=== PATIENT | female | born 1960 | race Caucasian/White ===

== ENCOUNTER 2016-07-09 18:59 | Emergency (ER) | payer OTHER ==
[~2016-07-09] VITALS: Ht 162.6 cm; Wt 104.0 kg
[~2016-07-09 18:59] MED LIST: BENTYL10 MG PO; CLONAZEPAM1 MG PO; DILAUDID2 MG PO; DILAUDID4 MG PO; GABAPENTIN100 MG PO; HUMALOG100 UNIT/1 SC; LEVOXYL150 MCG PO; METFORMIN HCL500 MG PO; PERCOCET 10/1 TABLET PO; PERCOCET 5/31 TABLET PO; PRILOSEC40 MG PO; SUCRALFATE1 GM PO; TOUJEO SOL300 UNIT/1 SC; [UNRECOGNIZED DRUG - REMARK]
[2016-07-09 19:34] LABS: HEMATOCRIT 42.4 % (36.0-46.0); MCH 28.4 PG (29.0-34.0); MCHC 32.3 G/DL (30.0-36.0); MEAN PLAT.VOLUME 10.6 uM^3 (9.5-12.4); PLATELET COUNT 287 K/uL (156-360); RBC DIS.WIDTH-CV 13.7 % (11.8-14.6); RBC DIS.WIDTH-SD 44.1 % (39-53); RED BLOOD COUNT 4.82 M/uL (3.80-5.20); WHITE BLOOD COUNT 10.2 K/uL (4.1-10.2)
[2016-07-09 19:48] LABS: ADD MIUA? NO; BILIRUBIN NEGATIVE; BLOOD NEGATIVE; COLOR YELLOW ((YELLOW)); GLUCOSE (STRIP) >=500; KETONES NEGATIVE; LEUKOCYTES NEGATIVE; NITRITE NEGATIVE; PROTEIN (STRIP) NEGATIVE; SPECIFIC GRAVITY 1.033 (1.000-1.030); UCUL ADDED? NO; UROBILINOGEN 0.2 MG/DL (0.2-1.0)
[2016-07-09 19:49] LABS: CHLORIDE 104 mEq/L (99-109); POTASSIUM 3.9 mEq/L (3.7-5.4); SODIUM 137 mEq/L (136-147)
[2016-07-09 19:52] LABS: ANION GAP 10 MEQ/L (2-14); GLUCOSE 395 mg/dL (70-99)
[2016-07-09 19:53] LABS: TOTAL BILIRUBIN 0.6 mg/dL (0.0-1.0)
[2016-07-09 19:54] LABS: ALKALINE PHOSPHATASE 111 IU/L (3-129)
[2016-07-09 19:55] LABS: GFR ESTIMATE (CALCULATED) > 59 mL/min/
[2016-07-09 19:56] LABS: UREA NITROGEN (BUN) 16 mg/dL (9-23)
[2016-07-09 20:03] LABS: LIPASE 34 U/L (1.0-51.0)
[2016-07-09 20:05] LABS: QUANTITATIVE HCG < 4.0 MIU/ML
[2016-07-09] MEDS ORDERED: ZOFRAN ODT4 MG PO (22:13)
[2016-07-09] MEDS ORDERED: PERCOCET 5/31 TABLET PO (22:13)
[2016-07-09 22:30] VITALS: BP 145/97
== END 2016-07-09 22:30 | disposition home or self-care (01) ==
LOC: EME 18:59
DX: R10.11 Right upper quadrant pain (principal); E11.65 Type 2 diabetes mellitus with hyperglycemia; E78.5 Hyperlipidemia, unspecified; K21.9 Gastro-esophageal reflux disease without esophagitis; E03.9 Hypothyroidism, unspecified; Z79.4 Long term (current) use of insulin; Z79.84 Long term (current) use of oral hypoglycemic drugs
CPT/HCPCS: 76705; 80053; 81003; 83690; 84702; 85027; 99281; 99284

== ENCOUNTER → 2016-07-31 | Outpatient (CLI) | payer OTHER ==
[~2016-07-31] MED LIST changes: +ZOFRAN ODT4 MG PO
== END | disposition home or self-care (01) ==
LOC: NUC 06:50
DX: K82.9 Disease of gallbladder, unspecified (principal)
CPT/HCPCS: 78226; A9537

== ENCOUNTER 2016-11-12 20:46 | Inpatient (IN) | payer OTHER ==
[~2016-11-12] VITALS: Ht 162.6 cm; Wt 105.0 kg
[2016-11-12 21:16] LABS: POINT-OF-CARE METER ID UU13113702
[2016-11-12 21:43] LABS: BASE EXCESS 3.9 mEq/L (-3 to +3); BICARBONATE 28.5 mEq/L (22-26); CARBOXY HGB 1.8 % (0-5); METHEMOGLOBIN 1.3 % (0-1.5); PCO2 42 mm Hg (35-45); PO2 54 mm Hg (80-100); pH 7.44 (7.35-7.45)
[2016-11-12 21:44] LABS: COMMENTS - BLOOD GASES A+C+; DEVICE RA; FI02 21 %; O2 FLOW 0 L/MIN; SITE LR; TOTAL RESP RATE 18 resp/min
[2016-11-12 21:48] LABS: EOSINOPHIL (%) 1.6 % (0-5); EOSINOPHIL COUNT 0.2 K/uL (0-0.3); HEMATOCRIT 42.2 % (36.0-46.0); IMMATURE GRANULOCYTE (%) 0.4 % (0.0-0.7); INSTRUMENT ABS NEUTROPHIL CT 5.8 K/uL; LYMPHOCYTE COUNT 2.5 K/uL (1.0-2.8); MCH 28.7 PG (29.0-34.0); MCHC 33.2 G/DL (30.0-36.0); MCV 86.5 FL (83-99); MEAN PLAT.VOLUME 10.3 uM^3 (9.5-12.4); MONOCYTE (%) 6.6 % (3-12); MONOCYTE COUNT 0.6 K/uL (0-0.8); NEUTROPHIL (%) 63.6 % (45-76); NEUTROPHIL COUNT 5.8 K/uL (1.8-6.4); PLATELET COUNT 289 K/uL (156-360); RBC DIS.WIDTH-CV 13.2 % (11.8-14.6); RBC DIS.WIDTH-SD 41.1 % (39-53); RED BLOOD COUNT 4.88 M/uL (3.80-5.20); WHITE BLOOD COUNT 9.1 K/uL (4.1-10.2)
[2016-11-12 22:07] LABS: CHLORIDE 99 mEq/L (99-109); POTASSIUM 3.4 mEq/L (3.7-5.4); SODIUM 136 mEq/L (136-147)
[2016-11-12 22:09] LABS: GLUCOSE 242 mg/dL (70-99)
[2016-11-12 22:10] LABS: ANION GAP 12 MEQ/L (2-14)
[2016-11-12 22:13] LABS: GFR ESTIMATE (CALCULATED) > 59 mL/min/; UREA NITROGEN (BUN) 10 mg/dL (9-23)
[2016-11-12] MEDS ORDERED: PERCOCET 5/31 TABLET PO (22:44)
[2016-11-12] MEDS ORDERED: PERCOCET 10/1 TABLET PO (22:44)
[2016-11-12] MEDS ORDERED: OMEPRAZOLE40 M1 PO (22:45)
[2016-11-12] MEDS ORDERED: ZOFRAN ODT4 MG PO (22:45)
[2016-11-12] MEDS ORDERED: SYNTHROID150 MCG PO ×2 (22:46)
[2016-11-12] MEDS ORDERED: ELAVIL10 MG PO (22:47)
[2016-11-12] MEDS ORDERED: GABAPENTIN300 MG PO (22:47)
[2016-11-12] MEDS ORDERED: PRAMIPEXOLE D0.25 MG PO (22:47)
[2016-11-13] VITALS (7 sets, daily range): BP systolic 102–148; BP diastolic 59–84
[2016-11-13 02:08] LABS: TROP-I INTERPRETATION NEGATIVE; TROPONIN-I < 0.01 ng/mL (0.0-0.30)
[2016-11-13 06:29] LABS: POINT-OF-CARE METER ID UU14208750
[2016-11-13 06:36] LABS: HEMATOCRIT 40.8 % (36.0-46.0); MCH 29.2 PG (29.0-34.0); MCHC 33.1 G/DL (30.0-36.0); MCV 88.1 FL (83-99); MEAN PLAT.VOLUME 10.8 uM^3 (9.5-12.4); PLATELET COUNT 272 K/uL (156-360); RBC DIS.WIDTH-CV 13.7 % (11.8-14.6); RBC DIS.WIDTH-SD 43.8 % (39-53); RED BLOOD COUNT 4.63 M/uL (3.80-5.20); WHITE BLOOD COUNT 8.5 K/uL (4.1-10.2)
[2016-11-13 07:05] LABS: TROP-I INTERPRETATION NEGATIVE; TROPONIN-I < 0.01 ng/mL (0.0-0.30)
[2016-11-13 07:14] LABS: ANION GAP 13 MEQ/L (2-14); CHLORIDE 99 MEQ/L (99-109); GFR ESTIMATE (CALCULATED) > 59 mL/min/; GLUCOSE 357 mg/dL (70-99); SAMPLE HEMOLYSIS CHECK 0; SAMPLE ICTERIC CHECK 0; SAMPLE LIPEMIA CHECK 0; SODIUM 136 MEQ/L (136-147); UREA NITROGEN (BUN) 8 mg/dL (9-23)
[2016-11-13 07:45] LABS: Estimated Average Glucose 326 mg/dL (70-123)
[2016-11-13 16:17] LABS: POINT-OF-CARE METER ID UU14208750
[2016-11-13 23:13] LABS: POINT-OF-CARE METER ID UU14208750
[2016-11-14 03:01] LABS: POINT-OF-CARE METER ID UU14208750
[2016-11-14 03:56] VITALS: BP 124/59
[2016-11-14 06:27] LABS: POINT-OF-CARE METER ID UU14208750
[2016-11-14 07:05] VITALS: BP 151/94
[2016-11-14 07:08] LABS: EOSINOPHIL (%) 0 % (0-5); HEMATOCRIT 39.6 % (36.0-46.0); IMMATURE GRANULOCYTE COUNT 0.2 K/uL; LYMPHOCYTE COUNT 1.1 K/uL (1.0-2.8); MCHC 32.1 G/DL (30.0-36.0); MCV 87.4 FL (83-99); MEAN PLAT.VOLUME 10.4 uM^3 (9.5-12.4); MONOCYTE (%) 2.8 % (3-12); MONOCYTE COUNT 0.5 K/uL (0-0.8); NEUTROPHIL (%) 90.3 % (45-76); PLATELET COUNT 290 K/uL (156-360); RBC DIS.WIDTH-CV 13.6 % (11.8-14.6); RBC DIS.WIDTH-SD 43.9 % (39-53); RED BLOOD COUNT 4.53 M/uL (3.80-5.20); WHITE BLOOD COUNT 18.8 K/uL (4.1-10.2)
[2016-11-14 07:30] LABS: ANION GAP 12 MEQ/L (2-14); CHLORIDE 103 MEQ/L (99-109); GFR ESTIMATE (CALCULATED) > 59 mL/min/; GLUCOSE 313 mg/dL (70-99); MAGNESIUM 1.8 mg/dl (1.3-2.7); POTASSIUM 4.1 MEQ/L (3.7-5.4); SAMPLE HEMOLYSIS CHECK 0; SAMPLE ICTERIC CHECK 0; SAMPLE LIPEMIA CHECK 0; SODIUM 137 MEQ/L (136-147); UREA NITROGEN (BUN) 14 mg/dL (9-23)
[2016-11-14 08:08] LABS: POINT-OF-CARE METER ID UU14208750
[2016-11-14 08:08] LABS: POINT-OF-CARE METER ID UU14208750
[2016-11-14 11:42] LABS: POINT-OF-CARE METER ID UU14208750
[2016-11-14 12:10] VITALS: BP 150/79
[2016-11-14 15:25] VITALS: BP 133/64
[2016-11-14 19:56] VITALS: BP 128/72
[2016-11-14 20:03] LABS: POINT-OF-CARE METER ID UU14208750
[2016-11-14 21:34] LABS: POINT-OF-CARE METER ID UU14208750
[2016-11-14 23:45] VITALS: BP 127/65
[2016-11-15 06:36] LABS: POINT-OF-CARE METER ID UU14208750
[2016-11-15 06:59] LABS: EOSINOPHIL (%) 0 % (0-5); HEMATOCRIT 41.4 % (36.0-46.0); IMMATURE GRANULOCYTE (%) 0.7 % (0.0-0.7); IMMATURE GRANULOCYTE COUNT 0.1 K/uL; INSTRUMENT ABS NEUTROPHIL CT 16.5 K/uL; MCH 28.2 PG (29.0-34.0); MCHC 32.4 G/DL (30.0-36.0); MCV 87.2 FL (83-99); MEAN PLAT.VOLUME 10.3 uM^3 (9.5-12.4); MONOCYTE (%) 1.6 % (3-12); MONOCYTE COUNT 0.3 K/uL (0-0.8); NEUTROPHIL COUNT 16.5 K/uL (1.8-6.4); PLATELET COUNT 292 K/uL (156-360); RBC DIS.WIDTH-CV 13.5 % (11.8-14.6); RBC DIS.WIDTH-SD 42.9 % (39-53); RED BLOOD COUNT 4.75 M/uL (3.80-5.20); WHITE BLOOD COUNT 17.9 K/uL (4.1-10.2)
[2016-11-15 07:26] LABS: ANION GAP 11 MEQ/L (2-14); CHLORIDE 98 MEQ/L (99-109); GFR ESTIMATE (CALCULATED) > 59 mL/min/; MAGNESIUM 1.9 mg/dl (1.3-2.7); POTASSIUM 4.1 MEQ/L (3.7-5.4); SAMPLE HEMOLYSIS CHECK 0; SAMPLE ICTERIC CHECK 0; SAMPLE LIPEMIA CHECK 0; SODIUM 135 MEQ/L (136-147); UREA NITROGEN (BUN) 19 mg/dL (9-23)
[2016-11-15 07:27] LABS: GLUCOSE 405 mg/dL (70-99)
[2016-11-15 07:50] VITALS: BP 154/78
[2016-11-15 08:01] LABS: POINT-OF-CARE METER ID UU14208750; POINT-OF-CARE USER ID 612031306
[2016-11-15 12:31] LABS: POINT-OF-CARE METER ID UU14208750
[2016-11-15 12:56] LABS: GLUCOSE 471 mg/dL (70-99)
[2016-11-15 15:20] VITALS: BP 133/77
[2016-11-15 20:11] VITALS: BP 168/70
[2016-11-15 23:43] VITALS: BP 134/68
[2016-11-16] VITALS (7 sets, daily range): BP systolic 131–168; BP diastolic 68–95
[2016-11-16 06:23] LABS: EOSINOPHIL (%) 0 % (0-5); HEMATOCRIT 39.5 % (36.0-46.0); IMMATURE GRANULOCYTE (%) 1.1 % (0.0-0.7); IMMATURE GRANULOCYTE COUNT 0.1 K/uL; INSTRUMENT ABS NEUTROPHIL CT 9.2 K/uL; LYMPHOCYTE COUNT 2.2 K/uL (1.0-2.8); MCH 29.2 PG (29.0-34.0); MCHC 33.4 G/DL (30.0-36.0); MCV 87.4 FL (83-99); MEAN PLAT.VOLUME 10.7 uM^3 (9.5-12.4); MONOCYTE (%) 5.5 % (3-12); MONOCYTE COUNT 0.7 K/uL (0-0.8); NEUTROPHIL (%) 75.3 % (45-76); NEUTROPHIL COUNT 9.2 K/uL (1.8-6.4); PLATELET COUNT 272 K/uL (156-360); RBC DIS.WIDTH-CV 13.7 % (11.8-14.6); RBC DIS.WIDTH-SD 43.8 % (39-53); RED BLOOD COUNT 4.52 M/uL (3.80-5.20); WHITE BLOOD COUNT 12.2 K/uL (4.1-10.2)
[2016-11-16 06:53] LABS: ALKALINE PHOSPHATASE 78 IU/L (3-129); ANION GAP 10 MEQ/L (2-14); CHLORIDE 99 MEQ/L (99-109); GFR ESTIMATE (CALCULATED) > 59 mL/min/; GLUCOSE 353 mg/dL (70-99); POTASSIUM 3.8 MEQ/L (3.7-5.4); SAMPLE HEMOLYSIS CHECK 0; SAMPLE ICTERIC CHECK 0; SAMPLE LIPEMIA CHECK 0; SODIUM 137 MEQ/L (136-147); TOTAL BILIRUBIN 0.3 MG/DL (0.0-1.0); UREA NITROGEN (BUN) 21 mg/dL (9-23)
[2016-11-17 04:52] VITALS: BP 149/85
[2016-11-17 05:34] LABS: EOSINOPHIL (%) 0.1 % (0-5); HEMATOCRIT 41.1 % (36.0-46.0); IMMATURE GRANULOCYTE (%) 0.7 % (0.0-0.7); IMMATURE GRANULOCYTE COUNT 0.1 K/uL; INSTRUMENT ABS NEUTROPHIL CT 6.9 K/uL; LYMPHOCYTE COUNT 2.6 K/uL (1.0-2.8); MCH 28.4 PG (29.0-34.0); MCHC 32.8 G/DL (30.0-36.0); MCV 86.5 FL (83-99); MEAN PLAT.VOLUME 10.3 uM^3 (9.5-12.4); MONOCYTE (%) 6.4 % (3-12); MONOCYTE COUNT 0.7 K/uL (0-0.8); NEUTROPHIL (%) 67.3 % (45-76); NEUTROPHIL COUNT 6.9 K/uL (1.8-6.4); PLATELET COUNT 269 K/uL (156-360); RBC DIS.WIDTH-CV 13.5 % (11.8-14.6); RBC DIS.WIDTH-SD 42.5 % (39-53); RED BLOOD COUNT 4.75 M/uL (3.80-5.20); WHITE BLOOD COUNT 10.2 K/uL (4.1-10.2)
[2016-11-17 06:07] LABS: ALKALINE PHOSPHATASE 74 IU/L (3-129); ANION GAP 11 MEQ/L (2-14); CHLORIDE 98 MEQ/L (99-109); GFR ESTIMATE (CALCULATED) > 59 mL/min/; GLUCOSE 308 mg/dL (70-99); POTASSIUM 3.7 MEQ/L (3.7-5.4); SAMPLE HEMOLYSIS CHECK 0; SAMPLE ICTERIC CHECK 0; SAMPLE LIPEMIA CHECK 0; SODIUM 138 MEQ/L (136-147); UREA NITROGEN (BUN) 17 mg/dL (9-23)
[2016-11-17 06:15] LABS: TOTAL BILIRUBIN 0.4 MG/DL (0.0-1.0)
[2016-11-17 07:49] VITALS: BP 149/85
[2016-11-17] MEDS ORDERED: CEFTIN250 MG PO (10:27)
[2016-11-17] MEDS ORDERED: AMLODIPINE BESYL5 MG PO (10:27)
[2016-11-17] MEDS ORDERED: ADVAIR HFA120 INHALA IH (10:29)
[2016-11-17] MEDS ORDERED: PREDNISONE10 MG PO (10:30)
[2016-11-17 11:10] LABS: POINT-OF-CARE USER ID 612031306
== END 2016-11-17 12:05 | disposition home or self-care (01) | DRG 202 ==
LOC: EME 20:46 → 2EAST 23:26 → EDOF 23:26 → 2EAST 11-13 01:10
PROVIDERS: Emergency Medicine; Hospitalist; Internal Medicine; Nurse Practitioner Adult Health
DX: J20.9 Acute bronchitis, unspecified (principal); J96.01 Acute respiratory failure with hypoxia; E11.65 Type 2 diabetes mellitus with hyperglycemia; E87.6 Hypokalemia; I25.9 Chronic ischemic heart disease, unspecified; I10 Essential (primary) hypertension; E78.5 Hyperlipidemia, unspecified; G47.30 Sleep apnea, unspecified; K21.9 Gastro-esophageal reflux disease without esophagitis; E03.9 Hypothyroidism, unspecified; E66.01 Morbid (severe) obesity due to excess calories; Z68.39 Body mass index [BMI] 39.0-39.9, adult; Z79.4 Long term (current) use of insulin; Z79.84 Long term (current) use of oral hypoglycemic drugs
CPT/HCPCS: 36600; 71010; 71275; 80048; 80053; 82565; 82803; 82948; 83036; 83605; 83735; 84484; 84520; 84999; 85025; 85027; 85379; 87040; 93306; 94640; 94640 76; 94799; 99202; 99281; 99285; J0456; J0696; J1650; J1815; J2930; J7030; J7040; J7050; J7512

== ENCOUNTER 2017-06-08 19:12 | Emergency (ER) | payer OTHER ==
[~2017-06-08] VITALS: Ht 162.6 cm; Wt 99.6 kg
[~2017-06-08 19:12] MED LIST changes: +ADVAIR HFA120 INHALA IH; +AMLODIPINE BESYL5 MG PO; +CEFTIN250 MG PO; +ELAVIL10 MG PO; +GABAPENTIN300 MG PO; +OMEPRAZOLE40 M1 PO; +PRAMIPEXOLE D0.25 MG PO; +PREDNISONE10 MG PO; +SYNTHROID150 MCG PO
[2017-06-08 19:47] LABS: HEMATOCRIT 43.3 % (36.0-46.0); HEMOGLOBIN 14.5 G/DL (11.9-15.5); MCH 29.2 PG (29.0-34.0); MCHC 33.5 G/DL (30.0-36.0); MCV 87.1 FL (83-99); PLATELET COUNT 305 K/uL (156-360); RBC DIS.WIDTH-CV 14.1 % (11.8-14.6); RBC DIS.WIDTH-SD 44.9 % (39-53); RED BLOOD COUNT 4.97 M/uL (3.80-5.20); WHITE BLOOD COUNT 10.6 K/uL (4.1-10.2)
[2017-06-08 19:56] LABS: APPEARANCE CLEAR ((CLEAR)); BILIRUBIN NEGATIVE; BLOOD NEGATIVE; COLOR YELLOW ((YELLOW)); GLUCOSE (STRIP) >=500; KETONES NEGATIVE; LEUKOCYTES TRACE; NITRITE NEGATIVE; PROTEIN (STRIP) 30; SPECIFIC GRAVITY 1.033 (1.000-1.030); UROBILINOGEN 0.2 MG/DL (0.2-1.0)
[2017-06-08 20:05] LABS: CHLORIDE 102 mEq/L (99-109); POTASSIUM 3.8 mEq/L (3.7-5.4); SODIUM 136 mEq/L (136-147)
[2017-06-08 20:05] LABS: BACTERIA NONE SEEN /HPF; EPITHELIAL CELLS RARE /HPF; MUCUS TRACE /LPF; RED BLOOD CELLS 0-5 /HPF (0-5); UCUL ADDED? YES
[2017-06-08 20:07] LABS: GLUCOSE 295 mg/dL (70-99); TOTAL PROTEIN 7.6 g/dL (6.4-8.3)
[2017-06-08 20:09] LABS: TOTAL BILIRUBIN 0.4 mg/dL (0.0-1.0)
[2017-06-08 20:10] LABS: ALKALINE PHOSPHATASE 115 IU/L (3-129)
[2017-06-08 20:11] LABS: GFR ESTIMATE (CALCULATED) > 59 mL/min/
[2017-06-08 20:12] LABS: AST (GOT) 17 IU/L (2-34); UREA NITROGEN (BUN) 17 mg/dL (9-23)
[2017-06-08 20:13] LABS: ALT (GPT) 18 IU/L (3-49)
[2017-06-09 00:35] VITALS: BP 152/79
== END 2017-06-09 00:37 | disposition home or self-care (01) ==
LOC: EME 19:12
PROVIDERS: Emergency Medicine
DX: E11.65 Type 2 diabetes mellitus with hyperglycemia (principal); R51 Headache; H53.8 Other visual disturbances; E03.9 Hypothyroidism, unspecified; Z79.4 Long term (current) use of insulin
CPT/HCPCS: 80053; 81003; 82010; 82948; 85027; 87086; 99281; 99285; J7030